=== PATIENT | male | born 1965 | race Caucasian/White ===

== ENCOUNTER 2018-08-30 17:18 | Emergency (ER) | payer OTHER, MEDICAID, SELFPAY ==
[2018-08-30 17:25] VITALS: BP 123/88; PULSE 99; RESP 16; TEMP 36.8; O2SAT 99
--- NOTE | 2018-08-30 20:55 | ED.GENADULT ---
HPI - General Adult General Chief complaint: Dental/Oral Stated complaint: INFECTION OF THE LIP Time Seen by Provider: 08/30/18 20:53 Source: patient Mode of arrival: ambulatory Limitations: no limitations History of Present Illness HPI narrative: Patient is a 53-year-old male here for what he thinks is an infection of his right upper lip. Patient states that a couple days ago he started to get redness and swelling in this area. No trauma. He does have facial hair and has not shaved this area. He states that he had a very similar occurrence to his left upper lip several months ago. He states that that went away on its own. He states that now his right upper lip is becoming more painful and it feels like the redness is spreading up under his right eye. He has had to have other abscesses drained on other parts of his body. He has no dental pay. No problem swallowing or breathing. Has not tried anything for this prior to arrival Related Data Home Medications Medication Instructions Recorded Confirmed alprazolam 1 tab PO TID PRN 08/30/18 amitriptyline 1 tab PO QPM 08/30/18 08/30/18 hydroxyzine HCl 1 tab PO TID PRN 08/30/18 08/30/18 naproxen 500 mg PO DAILY 08/30/18 08/30/18 Previous Rx's Medication Instructions Recorded sulfamethoxazole-trimethoprim 1 tab PO BID 10 Days #20 tab 08/30/18 [Bactrim DS] Allergies Allergy/AdvReac Type Severity Reaction Status Date / Time No Known Drug Allergies Allergy Verified 08/30/18 17:35 Review of Systems Constitutional Denies fatigue and Denies fever(s) Eyes Denies change in vision ENT Comments: Swelling and redness to the right upper lip Cardiovascular Denies dyspnea Respiratory Denies cough and Denies dyspnea Integumentary/Breasts Comments: Patient with lesions and swelling to the right upper lip Endocrine Denies fatigue Hematologic/Lymphatic Denies easy bleeding and Denies easy bruising [facility] Medical History Anxiety (Acute) Surgical History No pertinent past surgical history (Acute) Social History Smoking Status: Current every day smoker Exam Initial Vital Signs Initial Vital Signs: Vital Signs Temperature 98.2 F 08/30/18 17:25 Pulse Rate 99 H 08/30/18 17:25 Respiratory Rate 16 08/30/18 17:25 Blood Pressure 123/88 08/30/18 17:25 Pulse Oximetry 99 08/30/18 17:25 Const General: cooperative, healthy appearing, comfortable, well developed, well groomed and No acute distress Orientation: alert, awake and oriented x3 HENMT Head: normal to inspection and normocephalic Face and sinus: other (Patient with redness to the right upper lip with swelling of the right side of the upper lip. Does have some areas of excoriation and crusting. No drainage. Very minor amount of redness just above his right upper lip. Does not extend to his eye.) Eyes Pupils: PERRL EOM: EOM intact bilaterally Resp Effort & Inspection: normal respiratory effort Skin Other: Some areas of crusting and swelling to the right upper lip. No drainage. Does have a minor amount of swelling above the mustache on his right upper lip. Does not extend to his eye. Psych Appearance: grossly normal and well kempt Course Orders Ordered: Discontinued Medications Trimethoprim/Sulfamethoxazole (Bactrim Ds) 1 tab PO NOW ONE Stop: 08/30/18 21:05 Last Admin: 08/30/18 21:08 Dose: 1 tab Vital Signs - 8 hr 08/30/18 21:14 Temperature 98.7 F Pulse Rate 112 H Respiratory Rate 17 Blood Pressure 130/81 Pulse Oximetry 99 Medical Decision Making [facility] Narrative Medical decision making narrative: Patient has had to have incision and drainage of abscesses in other parts of his body. He does have swelling and crusting of his right upper lip. Does have facial hair in this area. No drainable abscess was noted on my exam. Dentition appears intact. Will start the patient on antibiotics. Patient was given return precautions. He expressed understanding and agreement with plan. Discharge Plan Departure Patient Disposition: Home Clinical Impression: Cellulitis Discharge Date/Time: 08/30/18 21:17 Interventions: ED Discharge Assessment Last Done: 08/30/18 21:14 Instructions: DI for Cellulitis -- Adult Activity Restrictions/Additional Instructions: You were given your 1st dose of antibiotics here in the emergency department. Fill the prescription of the antibiotics and start taking them tomorrow. Call your primary care doctor for a follow-up. Return to the emergency department for any new symptoms, cellulitis that does not improve despite the antibiotics or worsening of the rash. Prescriptions: New sulfamethoxazole-trimethoprim [Bactrim DS] 800-160 mg tablet 1 tab PO BID 10 Days Qty: 20 RF: 0 No Action amitriptyline 75 mg tablet 1 tab PO QPM RF: 0 alprazolam 0.5 mg tablet 1 tab PO TID PRN (Reason: Anxiety) RF: 0 hydroxyzine HCl 25 mg tablet 1 tab PO TID PRN (Reason: Itching) RF: 0 naproxen 500 mg tablet 500 mg PO DAILY RF: 0
[2018-08-30] MEDS: TRIMETH/SULFA 160/800 (DS) TABLET 1 TAB PO (21:08)
[2018-08-30 21:14] VITALS: BP 130/81; PULSE 112; RESP 17; TEMP 37.1; O2SAT 99
== END 2018-08-30 21:17 | disposition home or self-care (01) ==
PROVIDERS: Emergency Provider Emergency Medicine
DX: K13.0 Diseases of lips (principal)
CPT/HCPCS: 99282; 99283

== ENCOUNTER 2019-06-17 04:51 | Emergency (ER) | payer OTHER, MEDICAID, SELFPAY ==
[2019-06-17 05:04] VITALS: BP 157/91; PULSE 117; RESP 20; TEMP 36.6; O2SAT 95; BMI 25.7
[2019-06-17] MEDS: IBUPROFEN 400 MG TABLET 800 MG PO (05:15)
--- NOTE | 2019-06-17 05:16 | ED_ITS ---
HPI - Skin/Abscess/Foreign Bdy General Chief complaint: Wound/Laceration Stated complaint: blisters on feet Time Seen by Provider: 06/17/19 04:57 Source: patient Mode of arrival: ambulatory Limitations: no limitations History of Present Illness HPI narrative: Patient is a 53-year-old male who is unfortunately homeless presenting with blisters on his feet. He says about 4 days ago for 2 days in a row he walked quite a bit and now has blisters and pain on his feet. He does is best to keep them clean and dry however he does have quite a bit of pain in his feet. He is not diabetic. No fevers. MD complaint: lesion (Blisters bilateral feet) Onset (ago): day(s) (4) Location: LLE and RLE Severity: moderate Relieving factors: rest Related Data Home Medications Medication Instructions Recorded Confirmed alprazolam 1 tab PO TID PRN 08/30/18 amitriptyline 1 tab PO QPM 08/30/18 08/30/18 hydroxyzine HCl 1 tab PO TID PRN 08/30/18 08/30/18 naproxen 500 mg PO DAILY 08/30/18 08/30/18 Previous Rx's Medication Instructions Recorded amitriptyline 100 mg PO BEDTIME #30 tab 06/17/19 gabapentin 800 mg PO TID #90 cap 06/17/19 ibuprofen 800 mg PO TID PRN #30 tab 06/17/19 Allergies Allergy/AdvReac Type Severity Reaction Status Date / Time No Known Drug Allergies Allergy Verified 08/30/18 17:35 Review of Systems Review of Systems GENERAL: Denies chills,fever HEENT: Denies throat pain RESPIRATORY: Denies dyspnea, cough, wheezing CARDIOVASCULAR: Denies chest pain, palpitations GASTROINTESTINAL: Denies nausea, vomiting MUSCULOSKELETAL: Denies extremity pain, injury SKIN: See HPI NEUROLOGIC: Denies weakness, dizziness, headache, numbness 8 point review of systems is negative except for those stated above and HPI PFSH Social History (Updated 06/17/19 @ 05:23 by Ana Collins DO) Smoking Status: Current every day smoker additional social history: Homeless Exam Initial Vital Signs Initial Vital Signs: Vital Signs Temperature 97.9 F 06/17/19 05:04 Pulse Rate 117 H 06/17/19 05:04 Respiratory Rate 20 06/17/19 05:04 Blood Pressure 157/91 H 06/17/19 05:04 Pulse Oximetry 95 06/17/19 05:04 GENERAL: Well-appearing, well-nourished and in no acute distress. CARDIOVASCULAR: peripheral pulses in tact, cap refill <2 sec RESPIRATORY: No respiratory distress, speaks in full sentences without difficulty EXTREMITIES: Normal range of motion, no clubbing or edema. Neurovascularly intact NEUROLOGICAL: Cranial nerves II through XII grossly intact. Normal gait and speech. SKIN: Left foot blister between 1st and 2nd 2 cm x 2 cm. Right foot blister between 2nd and 3rd toe 1-1/2 by 1 cm Course Orders Ordered: Discontinued Medications Ibuprofen (Advil) 800 mg PO NOW ONE Stop: 06/17/19 05:06 Last Admin: 06/17/19 05:15 Dose: 800 mg Vital Signs - 8 hr 06/17/19 05:04 Temperature 97.9 F Pulse Rate 117 H Respiratory Rate 20 Blood Pressure 157/91 H Pulse Oximetry 95 MDM - Skin/Abscess/Foreign Bdy MDM Narrative Medical decision making narrative: The patient is soap to see in soap and water dressings were applied. Discharge Plan Departure Patient Disposition: Home Clinical Impression: Blister (nonthermal), left foot, initial encounter, Blister (nonthermal), right foot, initial encounter Instructions: DI for Blisters Activity Restrictions/Additional Instructions: *You have been diagnosed with with blisters on both feet *What to do: Recommend resting in Soaking them in warm water and scraping off skin. While walking use padded protection to help take weight off of area. *Continue to take medications as directed Ibuprofen 800 mg every 8 hours if needed for pain Gabapentin 800 mg 3 times a day Amitriptyline 100 mg at night *Follow up with your primary care provider in 2-3 days *Return to ER if you should have redness, pus, swelling, fever or any new, worsening or concerning symptoms Prescriptions: New ibuprofen 800 mg tablet 800 mg PO TID PRN (Reason: pain) Qty: 30 RF: 0 gabapentin 400 mg capsule 800 mg PO TID Qty: 90 RF: 0 amitriptyline 100 mg tablet 100 mg PO BEDTIME Qty: 30 RF: 0 No Action amitriptyline 75 mg tablet 1 tab PO QPM RF: 0 alprazolam 0.5 mg tablet 1 tab PO TID PRN (Reason: Anxiety) RF: 0 hydroxyzine HCl 25 mg tablet 1 tab PO TID PRN (Reason: Itching) RF: 0 naproxen 500 mg tablet 500 mg PO DAILY RF: 0 Referrals: [facility] [Outside]
[2019-06-17 05:49] VITALS: PULSE 116; O2SAT 99
--- NOTE | 2019-06-17 05:52 | PC.NURSE ---
Pt washed feet with soap and water and dried thoroughly. Blisters dressed with foam dressings and wrapped with koban per pt request. Pt given clean socks.
== END 2019-06-17 05:56 | disposition home or self-care (01) ==
PROVIDERS: Emergency Provider Emergency Medicine
DX: S90.822A Blister (nonthermal), left foot, initial encounter (principal); S90.821A Blister (nonthermal), right foot, initial encounter; Y93.01 Activity, walking, marching and hiking; Z59.0 Homelessness
CPT/HCPCS: 99283

== ENCOUNTER 2019-08-25 10:25 | Emergency (ER) | payer OTHER, MEDICAID, SELFPAY ==
--- NOTE | 2019-08-25 10:33 | DI.RAD.S_ITS ---
PROCEDURE: XR KNEE LT 3V INDICATIONS: pain TECHNIQUE: 3 views of the knee were acquired. COMPARISON: [facility], CR, XR KNEE ARTHRITIC SERIES BI, 06/25/2019, 10:48. FINDINGS: Bones: No fractures or dislocations. No suspicious bony lesions. An enthesophyte at the quadriceps tendon insertion is present. There may be mild degenerative changes within the patellofemoral compartment. Soft tissues: No joint effusion. No suspicious soft tissue calcifications. IMPRESSION: No acute fracture of the left knee. Dictated by: Ricki Mendoza M.D. on 08/25/2019 at 10:44 Approved by: Ricki Mendoza M.D. on 08/25/2019 at 10:46
--- NOTE | 2019-08-25 10:56 | PC.NURSE ---
Pt reports past ankle injury from jumping over fence in which he tore a ligament and broke off a piece of bone takes NSAIDs tylenol and gabapentin which he ran out of. reports he walked here from [facility] (about 5 miles) to get pain control. AAOx3. drinking coffee. NAD
[2019-08-25 11:23] VITALS: BP 127/74; PULSE 84; RESP 15; TEMP 36.8; O2SAT 95
--- NOTE | 2019-08-25 12:04 | ED_ITS ---
HPI - Extremity Injury (Lower) <KADIE Mcclure-BC - Last Filed: 08/25/19 18:23> General Chief Complaint: Extremity Injury, Lower Stated Complaint: painful ankles, knee Time Seen by Provider: 08/25/19 11:02 Source: patient Mode of arrival: Ambulatory Limitations: no limitations History of Present Illness HPI Narrative: The patient is a 54-year-old male current smoker right left ankle injury, with history of a torn ligament in nature fracture. He presents with a chief complaint of pain. He denies any falls or trauma on his left knee, but states he thinks it might be due to his chronic right ankle pain. He is also requesting refills of his gabapentin and ibuprofen. He denies any decreased range of motion. Of note the patient walked from [facility] to the emergency department today. He denies any fever, chills Related Data Home Medications Medication Instructions Recorded Confirmed alprazolam 1 tab PO TID PRN 08/30/18 amitriptyline 1 tab PO QPM 08/30/18 08/30/18 hydroxyzine HCl 1 tab PO TID PRN 08/30/18 08/30/18 naproxen 500 mg PO DAILY 08/30/18 08/30/18 Previous Rx's Medication Instructions Recorded amitriptyline 100 mg PO BEDTIME #30 tab 06/17/19 gabapentin 800 mg PO TID #90 cap 06/17/19 ibuprofen 800 mg PO TID PRN #30 tab 06/17/19 gabapentin 800 mg PO TID #30 tab 08/25/19 ibuprofen 800 mg PO Q8H PRN #30 tab 08/25/19 Allergies Allergy/AdvReac Type Severity Reaction Status Date / Time No Known Drug Allergies Allergy Verified 08/25/19 10:33 Review of Systems <KADIE Mcclure-BC - Last Filed: 08/25/19 18:23> Review of Systems Narrative: GENERAL: Denies chills, fatigue, malaise, fever, sweats. HEENT: Denies sinus pain, ear pain, sore throat, difficulty swallowing, dizziness. RESPIRATORY: Denies dyspnea, cough, wheezing, hemoptysis, sputum. CARDIOVASCULAR: Denies chest pain, palpitations, orthopnea, edema, GASTROINTESTINAL: Denies nausea, vomiting, abdominal pain, diarrhea, constipation, melena. : Denies dysuria, frequency, incontinence, hematuria, urinary retention. MUSCULOSKELETAL: See HPI SKIN: Denies rash, skin lesions, or other NEUROLOGIC: Denies weakness, headache, numbness, change in speech, confusion, seizures, incoordination. PSYCHIATRIC: No concerning psychosocial issues. 12 point review of systems is negative except for those stated above PFSH <ALEJANDRINA Mcclure - Last Filed: 08/25/19 18:23> Medical History Anxiety (Acute) Surgical History No pertinent past surgical history (Acute) Social History (Updated 06/17/19 @ 05:23 by Ana Collins DO) Smoking Status: Current every day smoker additional social history: Homeless Social History Smoking Status: Current every day smoker additional social history: Homeless Exam <ALEJANDRINA Mcclure - Last Filed: 08/25/19 18:23> Narrative Exam Narrative: GENERAL: This is a well-nourished, well-developed patient, in no acute distress HEAD: Atraumatic. Normocephalic. No temporal or scalp tenderness. EYES: Pupils equal round and reactive. Extraocular motions intact. No scleral icterus. No injection or drainage. ENT: Nose without bleeding, purulent drainage or septal hematoma. Throat without erythema, tonsillar hypertrophy or exudate. Uvula midline. Airway patent. NECK: Trachea midline. No JVD or lymphadenopathy. Supple, nontender, no meningeal signs. CARDIOVASCULAR: Regular rate and rhythm RESPIRATORY: No cough. No increased respiratory effort. No accessory muscle use. EXTREMITIES: No pain to palpation left knee. Able to flex and extend left knee. Negative varus, valgus this anterior posterior drawer test. BACK: Nontender without deformity or crepitance. No flank tenderness. NEURO: AOx3. SKIN: No rash or erythema abrasion laceration or rash noted left knee Initial Vital Signs Initial Vital Signs: Vital Signs Temperature 98.2 F 08/25/19 11:23 Pulse Rate 84 08/25/19 11:23 Respiratory Rate 15 08/25/19 11:23 Blood Pressure 127/74 08/25/19 11:23 Pulse Oximetry 95 08/25/19 11:23 <Ana Collins DO - Last Filed: 08/25/19 20:18> Initial Vital Signs Initial Vital Signs: Vital Signs Temperature 98.2 F 08/25/19 11:23 Pulse Rate 84 08/25/19 11:23 Respiratory Rate 15 08/25/19 11:23 Blood Pressure 127/74 08/25/19 11:23 Pulse Oximetry 95 08/25/19 11:23 Course <ALEJANDRINA Mcclure - Last Filed: 08/25/19 18:23> Orders Ordered: ED Orders 08/25/19 10:33 XR knee LT 3V Stat Vital Signs Vital signs: Vital Signs - 8 hr 08/25/19 11:23 Temperature 98.2 F Pulse Rate 84 Respiratory Rate 15 Blood Pressure [Left Arm] 127/74 Pulse Oximetry 95 <Ana Collins DO - Last Filed: 08/25/19 20:18> Orders Ordered: ED Orders 08/25/19 10:33 XR knee LT 3V Stat Vital Signs Vital signs: Vital Signs - 8 hr 08/25/19 11:23 Temperature 98.2 F Pulse Rate 84 Respiratory Rate 15 Blood Pressure [Left Arm] 127/74 Pulse Oximetry 95 MDM - Extremity Injury (Lower) <ALEJANDRINA Mcclure - Last Filed: 08/25/19 18:23> Imaging Data Left knee x-ray: Radiologist's impression: [address] [address] XRay Report Signed Patient: Augustin Hill TMR#: [id number] : 1965Acct:[id number] Age/Sex: 54 / MDate of Service: 08/25/19 Loc: ED Accession Number: [id number] Procedure: XR knee LT 3V Ordering Provider: Ana Collins D.O. PROCEDURE: XR KNEE LT 3V INDICATIONS: pain TECHNIQUE: 3 views of the knee were acquired. COMPARISON: [facility], CR, XR KNEE ARTHRITIC SERIES BI, 06/25/2019, 10:48. FINDINGS: Bones: No fractures or dislocations. No suspicious bony lesions. An enthesophyte at the quadriceps tendon insertion is present. There may be mild degenerative changes within the patellofemoral compartment. Soft tissues: No joint effusion. No suspicious soft tissue calcifications. IMPRESSION: No acute fracture of the left knee. Dictated by: Ricki Mendoza M.D. on 08/25/2019 at 10:44 Approved by: Ricki Mendoza M.D. on 08/25/2019 at 10:46 [facility] Narrative Medical decision making narrative: The patient is a 54-year-old male who presents with a chief complaint of left knee pain. X-rays taken to rule out any fracture. No acute fractures found. He is admitted to surgery on exam. I did talk prescriptions and stretches the follow-up. Encouraged rest ice compression elevation. Discussed come back to the ER for any acute concerns such as chest pain, shortness of breath, concern heart or stroke. Patient states understanding of plan of care, states understanding of return precautions as well as follow-up care. Patient questions or concerns upon discharge. Discharge Plan Departure Patient Disposition: Home Clinical Impression: Encounter for medication refill Knee Injury Qualifiers: Encounter type: initial encounter Laterality: left Qualified Code(s): S89.92XA - Unspecified injury of left lower leg, initial encounter Discharge Date/Time: 08/25/19 12:13 Instructions: How To Perform RICE (Rest, Ice, Compress, Elevate), DI for Safely Taking and Storing Medications -- Adults, DI for Knee Pain Activity Restrictions/Additional Instructions: Your knee x-ray came back with no acute abnormality. Please use rest ice compression elevation. I have given you refills of trudi apentin and ibuprofen. Please follow up with primary care provider. Please come back to the emergency department for any acute concerns such as chest pain, shortness of breath concern of heart attack or stroke Prescriptions: New gabapentin 800 mg tablet 800 mg PO TID Qty: 30 RF: 0 ibuprofen 800 mg tablet 800 mg PO Q8H PRN (Reason: pain) Qty: 30 RF: 0 No Action amitriptyline 75 mg tablet 1 tab PO QPM RF: 0 alprazolam 0.5 mg tablet 1 tab PO TID PRN (Reason: Anxiety) RF: 0 hydroxyzine HCl 25 mg tablet 1 tab PO TID PRN (Reason: Itching) RF: 0 naproxen 500 mg tablet 500 mg PO DAILY RF: 0 ibuprofen 800 mg tablet 800 mg PO TID PRN (Reason: pain) Qty: 30 RF: 0 gabapentin 400 mg capsule 800 mg PO TID Qty: 90 RF: 0 amitriptyline 100 mg tablet 100 mg PO BEDTIME Qty: 30 RF: 0
== END 2019-08-25 12:13 | disposition home or self-care (01) ==
PROVIDERS: Emergency Provider Nurse Practitioner Family
DX: M25.562 Pain in left knee (principal)
CPT/HCPCS: 73562; 99282; 99283

== ENCOUNTER 2019-08-29 00:43 | Emergency (ER) | payer OTHER, MEDICAID, SELFPAY ==
[2019-08-29 00:54] VITALS: BP 146/94; PULSE 92; RESP 16; TEMP 37.1; O2SAT 96; BMI 23.7
--- NOTE | 2019-08-29 00:54 | ED.EXTPRO ---
HPI - Extremity Problem General Chief complaint: Extremity Problem,Nontraumatic Stated complaint: thinks stapreno on right thumb Time Seen by Provider: 08/29/19 00:53 Source: patient Mode of arrival: Ambulatory Limitations: no limitations History of Present Illness HPI Narrative: 54-year-old male smoker with history of skin infections presents with a painful lesion on the finger pad of his right thumb that had some drainage over the past day or so but no longer does. He has full range of motion. He had been covering it with a bandage and Neosporin. He is unclear of a specific injury but has been working on multiple projects at home. His tetanus is current. He denies any systemic findings such as fever, chills nor nausea or vomiting MD Complaint: extremity pain and extremity swelling Onset (ago): day(s) Pain Consistency: constant Location: right Radiation: none Relieving factors: rest Exacerbating factors: range of motion and palpation Associated symptoms: denies other symptoms Related Data Home Medications Medication Instructions Recorded Confirmed alprazolam 1 tab PO TID PRN 08/30/18 amitriptyline 1 tab PO QPM 08/30/18 08/30/18 hydroxyzine HCl 1 tab PO TID PRN 08/30/18 08/30/18 naproxen 500 mg PO DAILY 08/30/18 08/30/18 Previous Rx's Medication Instructions Recorded amitriptyline 100 mg PO BEDTIME #30 tab 06/17/19 gabapentin 800 mg PO TID #90 cap 06/17/19 ibuprofen 800 mg PO TID PRN #30 tab 06/17/19 gabapentin 800 mg PO TID #30 tab 08/25/19 ibuprofen 800 mg PO Q8H PRN #30 tab 08/25/19 doxycycline hyclate 100 mg PO BID #20 tab 08/29/19 Allergies Allergy/AdvReac Type Severity Reaction Status Date / Time No Known Drug Allergies Allergy Verified 08/25/19 10:33 Review of Systems Constitutional Constitutional: Denies chills, Denies fatigue, Denies fever(s), Denies frequent falls, Denies lethargy and Denies weakness Eyes Eyes: Denies change in vision, Denies eye discharge, Denies irritation and Denies loss of vision ENT Ears, Nose, Mouth, and Throat: Denies change in voice, Denies dizziness, Denies neck pain, Denies sore throat and Denies throat swelling Cardiovascular Cardiovascular: Denies chest pain, Denies irregular heart rhythm, Denies lightheadedness, Denies palpitations, Denies dyspnea, Denies dyspnea on exertion and Denies orthopnea Respiratory Respiratory: Denies cough, Denies dyspnea, Denies dyspnea on exertion and Denies wheezing Gastrointestinal Gastrointestinal: Denies abdominal pain, Denies change in bowel habits, Denies diarrhea, Denies nausea and Denies vomiting Genitourinary Genitourinary: Denies hematuria, Denies flank pain, Denies urinary incontinence and Denies urinary urgency Musculoskeletal Musculoskeletal: Denies back pain, Denies muscle weakness, Denies neck pain, Denies numbness and Denies tingling Integumentary/Breasts Skin/Breast: Denies pruritus, Reports erythema, Denies rash and Reports wounds Neurologic Neurologic: Denies behavioral changes, Denies confusion, Denies dizziness, Denies frequent falls, Denies loss of vision, Denies numbness, Denies tingling and Denies weakness Psychiatric Psychiatric: Denies anxiety, Denies behavioral changes, Denies confusion, Denies depression, Denies homicidal ideation and Denies suicidal ideation Endocrine Endocrine: Denies fatigue, Denies flushing and Denies palpitations Hematologic/Lymphatic Hematologic/Lymphatic: Denies easy bruising Allergic/Immunologic Allergic/Immunologic: Denies urticaria, Denies throat swelling and Denies wheezing [facility] Medical History Anxiety (Acute) Surgical History No pertinent past surgical history (Acute) Social History Smoking Status: Current every day smoker additional social history: Homeless Social History Smoking Status: Current every day smoker additional social history: Homeless Exam Narrative Exam Narrative: GEN: AOx3 and in mild distress EYES: Pupils are equal, round, and reactive to light and accommodation. Extraoccular muscles are intact bilaterally. There is no subconjunctival hemorrhage or exudate. CHEST: Lungs are clear to auscultation bilaterally and free of wheezes, rales, or rhonchi. Heart rate is regular rhythm, there are no murmurs, clicks, rubs, or gallops. There is no chest wall tenderness. ABD: Abdomen is soft and nontender. There is no guarding or rebound. Bowel sounds are normal in all 4 quadrants. There is no mass or organomegaly. EXT: None of Kanavel's signs for tenosynovitis such as sausage finger, stuck in flexion, tenderness with passive extension. No lymphangitis or pain along the flexor tendon sheath. SKIN: Minimal erythema on finger pad of right thumb with a small area of spontaneous draining essentially, no underlying induration or fluctuance Warm, pink, and dry. No erythema or rash Initial Vital Signs Initial Vital Signs: Vital Signs Temperature 98.7 F 08/29/19 00:54 Pulse Rate 92 H 08/29/19 00:54 Respiratory Rate 16 08/29/19 00:54 Blood Pressure 146/94 H 08/29/19 00:54 Pulse Oximetry 96 08/29/19 00:54 Course Orders Ordered: Discontinued Medications Doxycycline Hyclate (Vibramycin) 100 mg PO NOW ONE Stop: 08/29/19 01:01 Last Admin: 08/29/19 01:07 Dose: 100 mg Documented by: ROSMERY Vital Signs Vital signs: Vital Signs - 8 hr 08/29/19 00:54 08/29/19 01:29 Temperature 98.7 F Pulse Rate 92 H 87 Respiratory Rate 16 16 Blood Pressure 146/94 H 137/78 Pulse Oximetry 96 94 MDM - Extremity (Nontraumatic) MDM Narrative Medical decision making narrative: Spontaneously draining infectious process on flexor surface of right thumb without signs of tenosynovitis. Instructed to continue warm soaks, warm compresses and antibiotics. Extensive return precautions discussing signs of tenosynovitis. Patient's questions answered to his apparent satisfaction Discharge Plan Departure Patient Disposition: Home Clinical Impression: Cellulitis Qualifiers: Site of cellulitis: extremity Site of cellulitis of extremity: finger Laterality: right Qualified Code(s): L03.011 - Cellulitis of right finger Discharge Date/Time: 08/29/19 01:30 Instructions: DI for Cellulitis -- Adult Activity Restrictions/Additional Instructions: There is no evidence of an emergent or life threatening illness at this time, but follow up with your doctor in 1-2 days is recommended nonetheless to continue to rule out serious underlying causes of your symptoms. Please call the office for an appointment. Please return to the Emergency Department for any worsening or persistent symptoms. Please take medications as directed. Prescriptions: New doxycycline hyclate 100 mg tablet 100 mg PO BID Qty: 20 RF: 0 No Action amitriptyline 75 mg tablet 1 tab PO QPM RF: 0 alprazolam 0.5 mg tablet 1 tab PO TID PRN (Reason: Anxiety) RF: 0 hydroxyzine HCl 25 mg tablet 1 tab PO TID PRN (Reason: Itching) RF: 0 naproxen 500 mg tablet 500 mg PO DAILY RF: 0 gabapentin 800 mg tablet 800 mg PO TID Qty: 30 RF: 0 ibuprofen 800 mg tablet 800 mg PO Q8H PRN (Reason: pain) Qty: 30 RF: 0 ibuprofen 800 mg tablet 800 mg PO TID PRN (Reason: pain) Qty: 30 RF: 0 gabapentin 400 mg capsule 800 mg PO TID Qty: 90 RF: 0 amitriptyline 100 mg tablet 100 mg PO BEDTIME Qty: 30 RF: 0 Referrals: [facility] [Outside]
[2019-08-29] MEDS: DOXYCYCLINE HYCLATE 100 MG TABLET PO (01:07)
[2019-08-29 01:29] VITALS: BP 137/78; PULSE 87; RESP 16; O2SAT 94
== END 2019-08-29 01:30 | disposition home or self-care (01) ==
PROVIDERS: Emergency Provider Emergency Medicine
DX: L03.011 Cellulitis of right finger (principal)
CPT/HCPCS: 99282; 99283

== ENCOUNTER 2019-08-30 17:18 | Emergency (ER) | payer OTHER, MEDICAID, SELFPAY ==
[2019-08-30 17:25] VITALS: BP 128/78; PULSE 92; RESP 16; TEMP 36.9; O2SAT 97; BMI 23.7
[2019-08-30] MEDS: IBUPROFEN 400 MG TABLET 800 MG PO (17:50)
[2019-08-30] MEDS: DOXYCYCLINE HYCLATE 100 MG TABLET PO (17:50)
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
--- NOTE | 2019-08-31 10:40 | PC.NURSE ---
Pt called today saying he tried to refill his prescriptions last night and the pharmacies were closed. He lost the paper prescriptions and requests we call them in to [facility]. Called in all three prescriptions to pharmacist at [facility], per patient request.
== END 2019-08-30 18:01 | disposition home or self-care (01) ==
PROVIDERS: Emergency Provider Emergency Medicine
DX: L03.011 Cellulitis of right finger (principal); Z76.0 Encounter for issue of repeat prescription
CPT/HCPCS: 99283

== ENCOUNTER 2019-09-02 19:09 | Emergency (ER) | payer OTHER, MEDICAID, SELFPAY ==
[2019-09-02 19:47] VITALS: BP 123/75; PULSE 81; RESP 18; TEMP 37; O2SAT 98
--- NOTE | 2019-09-02 20:02 | ED.SKABFB ---
HPI - Skin/Abscess/Foreign Bdy <Rosaura Gunderson PA-C - Last Filed: 09/02/19 20:35> General Chief complaint: Skin/Abscess/Foreign Body Stated complaint: problems with thumb wound Time Seen by Provider: 09/02/19 19:27 Source: patient Mode of arrival: Ambulatory Limitations: no limitations History of Present Illness HPI narrative: This 54-year-old male returns to ED for follow-up right thumb cellulitis. He has been on regular doxycycline now for 3 days, has not noticed worsening of the infection but states that his hands feel stiff, and he feels like he has some brain fog that has increased as he takes more doses. He has not had any nausea or vomiting. He does admit to some methamphetamine use. He denies new fever, red streaking. He does admit that he tends to hand wash very frequently. He is unsure how the initial sores on his hands started. He denies picking at his skin. He denies any other new complaints on systems review. Notes that he has taken cephalexin previously without side effects. Related Data Home Medications Medication Instructions Recorded Confirmed alprazolam 1 tab PO TID PRN 08/30/18 amitriptyline 1 tab PO QPM 08/30/18 08/30/18 hydroxyzine HCl 1 tab PO TID PRN 08/30/18 08/30/18 naproxen 500 mg PO DAILY 08/30/18 08/30/18 Previous Rx's Medication Instructions Recorded gabapentin 800 mg PO TID #90 cap 06/17/19 ibuprofen 800 mg PO TID PRN #30 tab 06/17/19 gabapentin 800 mg PO TID #30 tab 08/25/19 ibuprofen 800 mg PO Q8H PRN #30 tab 08/25/19 doxycycline hyclate 100 mg PO BID #20 tab 08/29/19 doxycycline hyclate 100 mg PO BID #14 cap 08/30/19 ibuprofen 800 mg PO Q8H PRN #30 tab 08/30/19 mupirocin 1 applictn TOP BID #15 gram 08/30/19 cephalexin [Keflex] 500 mg PO Q6H 7 Days #28 cap 09/02/19 Allergies Allergy/AdvReac Type Severity Reaction Status Date / Time doxycycline AdvReac Numbness Verified 09/02/19 20:15 Review of Systems <Rosaura Gunderson PA-C - Last Filed: 09/02/19 20:35> Review of Systems ROS Unobtainable: All systems reviewed & are unremarkable except as noted in HPI and below PFSH <Rosaura Gundersno PA-C - Last Filed: 09/02/19 20:35> Medical History Anxiety (Acute) Surgical History (Updated 09/02/19 @ 20:34 by Rosaura Gunderson PA-C) No pertinent past surgical history (Chronic) Social History (Updated 09/02/19 @ 20:21 by Rosaura Gunderson PA-C) Smoking Status: Current every day smoker substance use type: methamphetamine additional social history: Homeless Social History (Updated 09/02/19 @ 20:21 by Rosaura Gunderson PA-C) Smoking Status: Current every day smoker substance use type: methamphetamine additional social history: Homeless Exam <Rosaura Gunderson PA-C - Last Filed: 09/02/19 20:35> Narrative Exam Narrative: GENERAL APPEARANCE: Patient sitting comfortably, in no distress. Speech somewhat harried LUNGS: Clear to auscultation bilaterally. HEART: Rate and rhythm regular without murmur, normal S1 and S2, no S3 or S4. NEUROVASCULAR: Upper extremities warm and pink with intact pulses, sensation grossly intact DERMATOLOGIC: Right thumb pad there is a nearly 1 cm white, calloused lesion, firm at the borders, softer underlying, with central brown scabbing. Trace surrounding erythema. Mildly tender. There are similar, smaller lesions on some of the other fingers. The palmar surfaces have some dry small scabs MUSCULOSKELETAL: No joint effusion of the hands and wrists. Full range of motion throughout the fingers. Right thumb strength intact against resistance. No tenderness of the joint or tendons Initial Vital Signs Initial Vital Signs: Vital Signs Temperature 98.6 F 09/02/19 19:47 Pulse Rate 81 09/02/19 19:47 Respiratory Rate 18 09/02/19 19:47 Blood Pressure 123/75 09/02/19 19:47 Pulse Oximetry 98 09/02/19 19:47 <Juno Vernon DO - Last Filed: 09/02/19 23:09> Initial Vital Signs Initial Vital Signs: Vital Signs Temperature 98.6 F 09/02/19 19:47 Pulse Rate 81 09/02/19 19:47 Respiratory Rate 18 09/02/19 19:47 Blood Pressure 123/75 09/02/19 19:47 Pulse Oximetry 98 09/02/19 19:47 Course <Rosaura Gunderson PA-C - Last Filed: 09/02/19 20:35> Vital Signs Vital signs: Vital Signs - 8 hr 09/02/19 19:47 Temperature 98.6 F Pulse Rate 81 Respiratory Rate 18 Blood Pressure 123/75 Pulse Oximetry 98 <Juno Vernon DO - Last Filed: 09/02/19 23:09> Vital Signs Vital signs: Vital Signs - 8 hr 09/02/19 19:47 Temperature 98.6 F Pulse Rate 81 Respiratory Rate 18 Blood Pressure 123/75 Pulse Oximetry 98 Discharge Plan Departure Patient Disposition: Home Clinical Impression: Cellulitis Qualifiers: Site of cellulitis: extremity Site of cellulitis of extremity: finger Laterality: right Qualified Code(s): L03.011 - Cellulitis of right finger Eczema Qualifiers: Eczema type: unspecified Qualified Code(s): L30.9 - Dermatitis, unspecified Discharge Date/Time: 09/02/19 20:20 Instructions: DI for Cellulitis -- Adult Activity Restrictions/Additional Instructions: Since you have noted some side effects with the doxycycline, please discontinue that and I have sent in a prescription for the cephalexin (Keflex), which you have taken in the past. Please start that this evening. Please keep your hands out of the water as I think this may be causing some skin cracking and eczema that could make you more prone to infection. I have given you some gloves to wear as needed. As we talked about, you should return if you have any acute changes such as fever, increasing pain, red streaks, etc. Otherwise, please follow-up with your PCP a few days after you have started this new antibiotic to reassess Prescriptions: New cephalexin [Keflex] 500 mg capsule 500 mg PO Q6H 7 Days Qty: 28 RF: 0 Discontinued amitriptyline 100 mg tablet 100 mg PO BEDTIME Qty: 30 RF: 0 No Action amitriptyline 75 mg tablet 1 tab PO QPM RF: 0 alprazolam 0.5 mg tablet 1 tab PO TID PRN (Reason: Anxiety) RF: 0 hydroxyzine HCl 25 mg tablet 1 tab PO TID PRN (Reason: Itching) RF: 0 naproxen 500 mg tablet 500 mg PO DAILY RF: 0 gabapentin 800 mg tablet 800 mg PO TID Qty: 30 RF: 0 ibuprofen 800 mg tablet 800 mg PO Q8H PRN (Reason: pain) Qty: 30 RF: 0 ibuprofen 800 mg tablet 800 mg PO TID PRN (Reason: pain) Qty: 30 RF: 0 gabapentin 400 mg capsule 800 mg PO TID Qty: 90 RF: 0 doxycycline hyclate 100 mg tablet 100 mg PO BID Qty: 20 RF: 0 doxycycline hyclate 100 mg capsule 100 mg PO BID Qty: 14 RF: 0 mupirocin 2 % ointment 1 applictn TOP BID Qty: 15 RF: 0 ibuprofen 800 mg tablet 800 mg PO Q8H PRN (Reason: pain) Qty: 30 RF: 0 Referrals: [facility] [Other] <Juno Vernon DO - Last Filed: 09/02/19 23:09> Sign Out Provider Sign Out Attestation: I was available for consultation during this patient's emergency department visit. This chart is signed by myself for administrative purposes only. I did not have direct contact with this patient during this visit. They were seen independently by the APC.
--- NOTE | 2019-09-02 20:12 | PC.NURSE ---
Pt states he thinks he is having reaction to his antibiotic he has been on for his thumb infection. His hands feel numb and he is dropping things.
== END 2019-09-02 20:20 | disposition home or self-care (01) ==
PROVIDERS: Emergency Provider Internal Medicine
DX: L03.011 Cellulitis of right finger (principal); L30.9 Dermatitis, unspecified
CPT/HCPCS: 99282

== ENCOUNTER 2019-11-03 08:16 | Emergency (ER) | payer OTHER, MEDICAID, SELFPAY ==
[2019-11-03 08:15] VITALS: BP 119/109; PULSE 63; RESP 8; O2SAT 98
[2019-11-03] MEDS: NALOXONE 0.4 MG/ML VIAL IV (08:20)
--- NOTE | 2019-11-03 08:40 | ED_ITS ---
HPI - Altered Mental Status General Chief Complaint: Altered Mental Status Stated Complaint: Medical Eval Time Seen by Provider: 11/03/19 08:30 Source: EMS Mode of arrival: EMS History of Present Illness HPI narrative: Patient is a 54-year-old male brought in by EMS. Apparently is well known to the police known to use multiple drugs including heroin and meth. He was found wandering out by the water hallucinating picking up things that were not there. Not combative and but redirectable. He is calm in the emergency department. MD complaint: decreased responsiveness Related Data Home Medications Medication Instructions Recorded Confirmed alprazolam 1 tab PO TID PRN 08/30/18 amitriptyline 1 tab PO QPM 08/30/18 08/30/18 hydroxyzine HCl 1 tab PO TID PRN 08/30/18 08/30/18 naproxen 500 mg PO DAILY 08/30/18 08/30/18 Previous Rx's Medication Instructions Recorded gabapentin 800 mg PO TID #90 cap 06/17/19 ibuprofen 800 mg PO TID PRN #30 tab 06/17/19 gabapentin 800 mg PO TID #30 tab 08/25/19 ibuprofen 800 mg PO Q8H PRN #30 tab 08/25/19 doxycycline hyclate 100 mg PO BID #20 tab 08/29/19 doxycycline hyclate 100 mg PO BID #14 cap 08/30/19 ibuprofen 800 mg PO Q8H PRN #30 tab 08/30/19 mupirocin 1 applictn TOP BID #15 gram 08/30/19 Allergies Allergy/AdvReac Type Severity Reaction Status Date / Time doxycycline AdvReac Numbness Verified 09/02/19 20:15 Review of Systems Review of Systems ROS Unobtainable: Unobtainable due to mental condition Patient History Medical History (Updated 11/03/19 @ 10:25 by Ana Collins DO) Anxiety (Acute) Surgical History (Updated 09/02/19 @ 20:34 by Rosaura Gunderson PA-C) No pertinent past surgical history (Chronic) Social History (Updated 09/02/19 @ 20:21 by Rosaura Gunderson PA-C) Smoking Status: Current every day smoker substance use type: methamphetamine additional social history: Homeless Smoking Status: Current every day smoker alcohol intake frequency: holidays/special occasions only Substance Use Type: marijuana, heroin and methamphetamine Exam Initial Vital Signs Initial Vital Signs: Vital Signs Pulse Rate 63 11/03/19 08:15 Respiratory Rate 8 L 11/03/19 08:15 Blood Pressure 119/109 H 11/03/19 08:15 Pulse Oximetry 98 11/03/19 08:15 GENERAL: Alert minimally arousable HEENT: Head atraumatic,EOMI, pupils reactive, face symmetric CARDIOVASCULAR: Regular rate and rhythm without murmurs, rubs or gallops. RESPIRATORY: Breath sounds equal bilaterally, no wheezes rales or rhonchi. ABDOMEN: Soft, nontender. Normoactive bowel sounds all 4 quadrants. No guarding or rebound. : No CVA tenderness EXTREMITIES: Normal range of motion, no clubbing or edema. Neurovascularly intact NEUROLOGICAL: Moving all extremities no gross deficits SKIN: Extremities fingers cool to touch, no erythema some track alonso noted on the right AC Course Orders Ordered: ED Orders 11/03/19 08:50 Acetaminophen Stat Complete Blood Count AUTO DIFF Stat Comprehensive Metabolic Panel Stat Ethanol (ETOH) Stat Salicylate Stat Vital Signs Vital signs: Vital Signs - 8 hr 11/03/19 09:52 11/03/19 11:59 Pulse Rate 66 79 Respiratory Rate 17 12 Blood Pressure [Left Arm] 116/61 106/66 Pulse Oximetry 98 97 MDM - Altered Mental Status Lab Data Attestation: I reviewed the patient's lab results. Result diagrams: 11/03/19 08:50 11/03/19 08:50 Labs: Lab Results 11/03/19 11/03/19 Range/Units 08:50 08:50 WBC 7.3 (4.5-11.0) X10^3/uL RBC 4.69 (4.5-5.9) X10^6/uL Hgb 14.2 (13.5-17.5) g/dL Hct 41.4 (41-53) % MCV 88.3 (80-100) fL MCH 30.2 (26-34) PG MCHC 34.2 (30-36) % RDW 14.6 (11.6-14.8) % Plt Count 258 (150-400) X10^3/uL Neut % (Auto) 68.0 (50-75) % Lymph % (Auto) 22.5 L (25-40) % Imperial % (Auto) 7.3 (3-14) % Eos % (Auto) 1.4 L (2-4) % Baso % (Auto) 0.8 (0-2) % Neut # (Auto) 5000 (5070-3821) /uL Lymph # (Auto) 1600 (0998-1726) /uL Imperial # (Auto) 500 (0-900) /uL Eos # (Auto) 100 (0-450) /uL Baso # (Auto) 100 (0-100) /uL Sodium 140 (137-145) mmol/L Potassium 3.6 (3.4-5.1) mmol/L Chloride 108 H (98-107) mmol/L Carbon Dioxide 25 (22-32) mmol/L BUN 26 H (9-20) mg/dL Creatinine 1.00 (0.66-1.25) mg/dL Estimated GFR > 60.0 (>60) mL/min BUN/Creatinine Ratio 26.0 H (6-22) Glucose 101 H (70-100) mg/dL Calcium 9.4 (8.4-10.2) mg/dL Total Bilirubin 0.7 (0.2-1.3) mg/dL AST 44 (17-59) IU/L ALT 43 (<50) IU/L Alkaline Phosphatase 90 (38-126) U/L Total Protein 7.5 (6.3-8.2) g/dL Albumin 4.4 (3.5-5.0) g/dL Globulin 3.1 (1.7-4.1) g/dL Albumin/Globulin Ratio 1.4 (1.0-2.8) Salicylates < 1.0 (<20) mg/dL Acetaminophen < 10 L (10-30) ug/mL Ethyl Alcohol < 10 ( - 10) mg/dL MDM Narrative Medical decision making narrative: The patient was given nasal Narcan with very minimal response. He was placed on CO2 monitor with a CO2 of 39. He was intermittently talking and ambulatory in the department. He was allowed to sleep while being monitored. He woken requested to leave. He had steady gait he was given socks. During his stay he refused to give a urine sample, he did urinate but did not give us a sample. Discharge Plan Departure Patient Disposition: Home Clinical Impression: Multiple substance abuse Discharge Date/Time: 12/09/19 12:40 Instructions: DI for Drug Abuse and Drug Addiction Activity Restrictions/Additional Instructions: *You have been diagnosed with drug abuse *What to do: Stop using drugs *Continue to take medications as directed *Follow up with your primary care provider in 2-3 days *Return to ER if you should have any new, worsening or concerning symptoms Prescriptions: No Action amitriptyline 75 mg tablet 1 tab PO QPM RF: 0 alprazolam 0.5 mg tablet 1 tab PO TID PRN (Reason: Anxiety) RF: 0 hydroxyzine HCl 25 mg tablet 1 tab PO TID PRN (Reason: Itching) RF: 0 naproxen 500 mg tablet 500 mg PO DAILY RF: 0 gabapentin 800 mg tablet 800 mg PO TID Qty: 30 RF: 0 ibuprofen 800 mg tablet 800 mg PO Q8H PRN (Reason: pain) Qty: 30 RF: 0 ibuprofen 800 mg tablet 800 mg PO TID PRN (Reason: pain) Qty: 30 RF: 0 gabapentin 400 mg capsule 800 mg PO TID Qty: 90 RF: 0 doxycycline hyclate 100 mg tablet 100 mg PO BID Qty: 20 RF: 0 doxycycline hyclate 100 mg capsule 100 mg PO BID Qty: 14 RF: 0 mupirocin 2 % ointment 1 applictn TOP BID Qty: 15 RF: 0 ibuprofen 800 mg tablet 800 mg PO Q8H PRN (Reason: pain) Qty: 30 RF: 0
[2019-11-03 08:57] LABS: Add Manual Diff / Slide Review NO; Basophils Absolute Auto 100 /uL (0-100); Basophils Percent Auto 0.8 % (0-2); Eosinophils Absolute Auto 100 /uL (0-450); Eosinophils Percent Auto 1.4 % (2-4); Hematocrit 41.4 % (41-53); Hemoglobin 14.2 g/dL (13.5-17.5); Lymphocytes Absolute Auto 1600 /uL (1100-4500); Lymphocytes Percent Auto 22.5 % (25-40); Mean Corpuscular HGB Conc 34.2 % (30-36); Mean Corpuscular Hemoglobin 30.2 PG (26-34); Mean Corpuscular Volume 88.3 fL (80-100); Monocytes Absolute Auto 500 /uL (0-900); Monocytes Percent Auto 7.3 % (3-14); Neutrophils Absolute Auto 5000 /uL (1500-7000); Platelet Count 258 X10^3/uL (150-400); Red Blood Cell Count 4.69 X10^6/uL (4.5-5.9); Red Cell Distribution Width 14.6 % (11.6-14.8); White Blood Cell Count 7.3 X10^3/uL (4.5-11.0)
--- NOTE | 2019-11-03 09:10 | PC.NURSE ---
pt found wondering the [place] area. no shoes. pt cooperative, appears intoxicated. pt now laying on stretcher, appears cold, continually trying to cover self up, vigerously. warm blankets placed on patient multiple times. pt does follow directions after appropriate stimulation and time to wake up.
[2019-11-03 09:11] LABS: Acetaminophen < 10 ug/mL (10-30); Alanine Aminotransferase 43 IU/L (<50); Albumin 4.4 g/dL (3.5-5.0); Albumin Globulin Ratio 1.4 (1.0-2.8); Alkaline Phosphatase 90 U/L (38-126); Aspartate Aminotransferase 44 IU/L (17-59); Bilirubin Total 0.7 mg/dL (0.2-1.3); Blood Urea Nitrogen 26 mg/dL (9-20); Calcium 9.4 mg/dL (8.4-10.2); Carbon Dioxide 25 mmol/L (22-32); Chloride 108 mmol/L (98-107); Estimated Glomerular Filt Rate > 60.0 mL/min (>60); Ethanol (ETOH) < 10 mg/dL; Globulin 3.1 g/dL (1.7-4.1); Glucose 101 mg/dL (70-100); HEMOLYSIS < 15 (0-50); Potassium 3.6 mmol/L (3.4-5.1); Salicylate < 1.0 mg/dL (<20); Sodium 140 mmol/L (137-145); Total Protein 7.5 g/dL (6.3-8.2)
[2019-11-03 09:52] VITALS: BP 116/61; PULSE 66; RESP 17; O2SAT 98
--- NOTE | 2019-11-03 10:22 | CM.MNRNOTE ---
pt wakes up starts ripping all his wires and bp cuff off. pt states i need to leave and i have to pee. asked pt to use urinal so we could send it to the lab. pt states then what explained to patient we can work on discharging him. pt refusing to use urinal states there is a public bathroom right there explained again to patient that we need a sample, pt agreed to use urinal once in the bathroom. pt exited bathroom without urinal sample. pt states no i forgot. pt stated he wants to leave. told patient to get dressed. pt began dressing. notified of situation, when she entered room pt then begins to mumble and not answer questions appropriately. but following directions without difficulty. IV removed, pt dressed self, and layed down in bed without difficulty.
[2019-11-03 11:59] VITALS: BP 106/66; PULSE 79; RESP 12; O2SAT 97
== END 2019-11-03 12:40 | disposition home or self-care (01) ==
PROVIDERS: Emergency Provider Emergency Medicine
DX: F19.10 Other psychoactive substance abuse, uncomplicated (principal)
CPT/HCPCS: 36415; 80053; 80320; 80329; 85025; 96374; 99283; 99284; G0480; J2310